=== PATIENT | female | born 1960 | race African-American/Black ===

== ENCOUNTER 2018-01-20 11:39 | Emergency (ER) | payer OTHER ==
[~2018-01-20] VITALS: Ht 167.6 cm; Wt 68.0 kg
[2018-01-20 11:39] VITALS: BP 130/67
[2018-01-20] MEDS ORDERED: NORCO 5-325 TA1 EACH PO (14:33)
== END 2018-01-20 14:30 | disposition home or self-care (01) ==
LOC: ER 11:39
DX: M25.811 Other specified joint disorders, right shoulder (principal)